=== PATIENT | male | born 2000 | race Caucasian/White ===

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

== ENCOUNTER 2018-09-03 14:56 | Emergency (ER) | payer MEDICAID, OTHER ==
[~2018-09-03] VITALS: Ht 177.8 cm; Wt 59.3 kg
[2018-09-03 15:44] VITALS: BP 103/71
--- NOTE | 2018-09-03 17:20 | NUR ---
COWS opiate withdrawal score 0.
== END 2018-09-03 17:24 | disposition home or self-care (01) ==
LOC: ER 14:58
DX: F11.10 Opioid abuse, uncomplicated (principal); F12.90 Cannabis use, unspecified, uncomplicated; F15.90 Other stimulant use, unspecified, uncomplicated; Z79.899 Other long term (current) drug therapy
CPT/HCPCS: 99281

== ENCOUNTER 2018-10-11 14:39 | Emergency (ER) | payer MEDICAID ==
[~2018-10-11] VITALS: Ht 177.8 cm; Wt 59.1 kg
[2018-10-11] MEDS ORDERED: buprenorphine/naloxone 8mg/2mg SL tablet SL ONE (14:50)
[2018-10-11 15:38] VITALS: BP 126/79
== END 2018-10-11 15:39 | disposition home or self-care (01) ==
LOC: ER 14:39
DX: F11.23 Opioid dependence with withdrawal (principal); F12.90 Cannabis use, unspecified, uncomplicated; F15.90 Other stimulant use, unspecified, uncomplicated; Z79.899 Other long term (current) drug therapy
CPT/HCPCS: 99282

== ENCOUNTER 2019-04-03 08:12 | Emergency (ER) | payer MEDICAID ==
[~2019-04-03] VITALS: Ht 177.8 cm; Wt 65.0 kg
[~2019-04-03 08:12] MED LIST changes: +LISD40CA PO; +PRED20TA PO
[2019-04-03] MEDS ORDERED: AMOX-422 PO (08:26)
[2019-04-03] MEDS ORDERED: ibuprofen tablet 400 MG TABLET PO ONE (08:30)
[2019-04-03] MEDS ORDERED: amox tr/potassium clavulanate 875/125mg TAB PO ONE (08:30)
[2019-04-03 08:41] LABS: CLARITY,URINE CLEAR (Clear); COLOR,URINE YELLOW (Yellow); GLUCOSE, URINE NEGATIVE (Neg); KETONES,URINE NEGATIVE (Neg); LEUKOCYTE ESTERASE ,URINE SMALL (Neg); NITRITES, URINE NEGATIVE (Neg); OCCULT BLOOD,URINE NEGATIVE (Neg); PROTEIN,URINE NEGATIVE (Neg); UROBILINOGEN,URINE 0.2 E.U/dL (0.2-1.0)
[2019-04-03 08:43] LABS: UA COLLECTION TYPE CLN CATCH MIDSTREAM
[2019-04-03 08:57] LABS: SQUAMOUS EPITHELIAL CELL,UR FEW /LPF (FEW)
[2019-04-03 09:00] LABS: BACTERIA,URINE FEW /HPF (Neg); RBC,URINE 0-2 /HPF (0-2)
[2019-04-03] MEDS ORDERED: CefTRIAXone 250MG IM Kit w/LIDOcaine IM ONE (09:00)
[2019-04-03] MEDS ORDERED: azithromycin 250mg tablet PO ONE (09:00)
[2019-04-03 09:03] LABS: BASOPHILS # (AUTO) 0.1 X10'3 (0-0.2); BASOPHILS % (AUTO) 0.6 % (0-1); EOSINOPHILS # (AUTO) 0.3 X10'3 (0-0.9); EOSINOPHILS % (AUTO) 1.8 % (0-6); HEMATOCRIT 42.4 % (42.0-52.0); HEMOGLOBIN 14.1 g/dl (14.0-17.9); LYMPHOCYTES # (AUTO) 1.9 X10'3 (1.1-4.8); MEAN CORPUSCULAR HEMOGLOBIN 27.1 PG (27.0-31.0); MEAN CORPUSCULAR HGB CONC 33.1 g/dL (33.0-36.5); MEAN CORPUSCULAR VOLUME 81.7 FL (78-98); MEAN PLATELET VOLUME 8.9 FL (7.4-10.4); MONOCYTES # (AUTO) 1.3 X10'3 (0-0.9); MONOCYTES % (AUTO) 8.7 % (2-12); NEUTROPHILS # (AUTO) 10.9 X10'3 (1.8-7.7); NEUTROPHILS % (AUTO) 75.9 % (42-75); PLATELET COUNT 274 X10'3 (140-440); RED BLOOD COUNT 5.19 X10'6 (4.70-6.10); WHITE BLOOD COUNT 14.4 X10'3 (4.5-11.0)
--- NOTE | 2019-04-03 09:03 | NUR ---
PAGED ULTRASOUND [id number]
[2019-04-03 09:05] LABS: ALANINE AMINOTRANSFERASE 66 U/L (12-78); ALBUMIN/GLOBULIN RATIO 0.9 (1.1-1.5); ALKALINE PHOSPHATASE 128 IU/L (46-116); ANION GAP 10 (8-16); ASPARTATE AMINO TRANSFERASE 30 U/L (10-37); BILIRUBIN,TOTAL 0.3 MG/DL (0.1-1.0); BLOOD UREA NITROGEN 9 MG/DL (7-18); BUN/CREATININE RATIO 13.8 (5.4-32.0); CALCIUM 8.9 MG/DL (8.5-10.1); CHLORIDE 99 MMOL/L (99-107); CREATININE 0.65 MG/DL (0.60-1.10); LIPASE 75 U/L (73-393); POTASSIUM 3.6 MMOL/L (3.5-5.1); SODIUM 138 MMOL/L (135-145); TOTAL CARBON DIOXIDE 29.2 MMOL/L (24-32); TOTAL PROTEIN 8.3 G/DL (6.4-8.2); eGFR > 90 ML/MIN
[2019-04-03 09:06] LABS: GLUCOSE 76 MG/DL (70-104)
--- NOTE | 2019-04-03 09:30 | NUR ---
ULTRASOUND AT BEDSIDE
[2019-04-03] MEDS ORDERED: IBUP-1986 PO (10:19)
[2019-04-03] MEDS ORDERED: DOXY100C43 PO (10:19)
[2019-04-03 10:36] VITALS: BP 116/71
== END 2019-04-03 10:37 | disposition home or self-care (01) ==
LOC: ER 08:13
DX: N45.1 Epididymitis (principal); F12.90 Cannabis use, unspecified, uncomplicated; F15.90 Other stimulant use, unspecified, uncomplicated; Z79.899 Other long term (current) drug therapy
CPT/HCPCS: 36415; 76870; 80053; 81001; 83690; 85025; 87088; 87491; 87591; 96372; 99284; J0696